=== PATIENT | male | born 1965 | race Caucasian/White ===

== ENCOUNTER 2020-01-30 17:25 | Emergency (ER) | payer MEDICARE, OTHER ==
[~2020-01-30] VITALS: Ht 182.8 cm; Wt 74.8 kg
[~2020-01-30 17:25] MED LIST: IBU-8800 MG PO; VICODIN 5/500 505 MG PO
[2020-01-30] MEDS ORDERED: CEPHALEXIN500 M1 PO (18:14)
[2020-01-30] MEDS ORDERED: ANTIBIOTIC28.4 GM T (18:14)
== END 2020-01-30 18:45 | disposition home or self-care (01) ==
LOC: ED 17:25
DX: S01.511A Laceration without foreign body of lip, initial encounter (principal); Y08.89XA Assault by other specified means, initial encounter; Y93.89 Activity, other specified; Y92.89 Other specified places as the place of occurrence of the external cause; Y99.8 Other external cause status

== ENCOUNTER 2022-11-13 11:09 | Emergency (ER) | payer OTHER, MEDICAID ==
[~2022-11-13] VITALS: Ht 182.8 cm; Wt 72.6 kg
[~2022-11-13 11:09] MED LIST changes: +ANTIBIOTIC28.4 GM T; +CEPHALEXIN500 M1 PO
== END 2022-11-13 12:12 | disposition home or self-care (01) ==
LOC: ED 11:09
DX: S20.219A Contusion of unspecified front wall of thorax, initial encounter (principal); F17.200 Nicotine dependence, unspecified, uncomplicated; W22.8XXA Striking against or struck by other objects, initial encounter; Y93.89 Activity, other specified; Y92.89 Other specified places as the place of occurrence of the external cause; Y99.8 Other external cause status